=== PATIENT | female | born 1955 | race Caucasian/White ===

== ENCOUNTER 2021-08-30 07:17 | Day surgery (SDC) | payer OTHER ==
[~2021-08-30] VITALS: Ht 160 cm; Wt 117.2 kg
[2021-08-30] MEDS ORDERED: EUTHYROX125 MCG PO (07:19)
--- NOTE | 2021-08-30 08:13 | NUR ---
08/30/21 0813 Fausto Scott See Anesthesia record DR ELLIOTT
--- NOTE | 2021-08-30 09:15 | NUR ---
PT AXOX4, ABLE TO REPOSITION SELF IN BED. REQUESTING PO FLUIDS AND FOOD. SPEAKING WITH AT BEDSIDE.
== END 2021-08-30 09:50 | disposition home or self-care (01) ==
LOC: ORSCSDS 07:17
PROVIDERS: Internal Medicine Gastroenterology
PROC: 0DBK8ZX Excision of Ascending Colon, Via Natural or Artificial Opening Endoscopic, Diagnostic (ICD-10-PCS; principal; 2021-08-30 08:00)
PROC: 0DBH8ZX Excision of Cecum, Via Natural or Artificial Opening Endoscopic, Diagnostic (ICD-10-PCS; principal; 2021-08-30 08:00)
PROC: 0DBP8ZX Excision of Rectum, Via Natural or Artificial Opening Endoscopic, Diagnostic (ICD-10-PCS; principal; 2021-08-30 08:00)
DX: K62.5 Hemorrhage of anus and rectum (principal); D12.0 Benign neoplasm of cecum; D12.2 Benign neoplasm of ascending colon; D12.8 Benign neoplasm of rectum; E03.9 Hypothyroidism, unspecified; Z79.899 Other long term (current) drug therapy; E66.01 Morbid (severe) obesity due to excess calories; Z68.42 Body mass index [BMI] 45.0-49.9, adult
CPT/HCPCS: 88305; J2704; J7120

== ENCOUNTER → 2022-11-12 | Outpatient (CLI) | payer OTHER ==
[~2022-11-12] MED LIST: EUTHYROX125 MCG PO
== END ==
LOC: LAB 06:00 → LAB SHORT 06:00
DX: M54.9 Dorsalgia, unspecified (principal)
CPT/HCPCS: 87086